=== PATIENT | female | born 1935 | race Asian ===

== ENCOUNTER 2020-11-22 14:59 | Observation (INO) ==
--- NOTE | 2020-11-22 16:36 | Emergency Department Note ---
History of Present Illness General Chief complaint: Cardiac Assessment Stated complaint: HEART PROBLEM Time Seen by Provider: 11/22/20 16:21 Source: patient and family History of Present Illness Provider complaint: Weakness in the legs Onset (ago): week(s) Location: lower extremity, left and right Pain Consistency: + constant Quality: + other (Weakness in legs) Relieved By: + none Associated symptoms: + headaches, + shortness of breath and + weakness; no chest pain, no cough, no fever/chills and no nausea/vomiting This is an 85-year-old female who presents from her doctor's office for evaluation of leg weakness as well as dyspnea on exertion. Apparently she had a abnormal EKG over at the doctor's office and she was sent here for cardiac work- up as well as rule out CVA. The patient and her states that the patient developed difficulty walking approximately 3 weeks ago. She suffered no injury or fall. She states that both her legs feel weak. She does have occasional back pain but none currently. She does complain of pain in both of her knees which makes it difficult for her to walk. She denies any numbness or weakness in her upper extremities other than a generalized weakness that she has been having. She has occasional headaches but nothing that concerns her. She also states that she has had some intermittent shortness of breath over the past 3 months. She has no associated chest discomfort or pain with this. She states that she notices it when she is exerting herself only. She states she has lost 15 pounds over the past 3 months according to her doctor. She states that she has not really been eating very much because she states food does not taste very good. She denies any abdominal pain, vomiting or diarrhea. She has had no urin kaylee complaints other than chronic urinary frequency. She has had no fever or cough or cold symptoms. Home Medications Medication Instructions Recorded Confirmed Type ascorbic acid (vitamin C) [Vitamin 500 mg PO DAILY PRN 06/10/19 11/22/20 History C] cholecalciferol (vitamin D3) 2,000 unit PO DAILY PRN 06/10/19 11/22/20 History [Vitamin D3] omega 3-wkx-chb-fish oil [Fish Oil] 1 cap PO DAILY PRN 06/10/19 11/22/20 History Allergies Allergy/AdvReac Type Severity Reaction Status Date / Time No Known Allergies Allergy Verified 11/22/20 13:30 Past Med/Surg History Medical History (Updated 11/22/20 @ 22:15 by Shaan Yang MD) Age-related cognitive decline Communication impairment due to language barrier (refused white kid buffer for phone interview). will use if needed day of surgery. Depression patient was to start Remeron on 05/11/19 by PCP -- reports patient did not cook pickled meat prescription Hyperlipidemia Raynaud's disease Solitary pulmonary nodule (~2018) Surgical History History of cataract surgery right Family History Father , 73 No problems noted. Mother , 80 No problems noted. Other No pertinent family history Denies family history of Ovarian cancer Prostate cancer Breast cancer Lung cancer Colorectal cancer Social History Smoking Status: Never smoker Second Hand Exposure: No; Hx Alcohol Use: No Hx Substance Use: No Preferred Language: Nepalese Communication Ability: Impaired Visual Impairment: Limited Hearing Ability: Normal Clerk To Justice Required: Yes Beliefs That Will Affect Care: None marital status: Current Living Situation: Spouse current occupational status: retired Feels Safe at Home: Yes Childhood Exposure to Second-Hand Smoke: No caffeine: No Dental Care, Regularly: No Physical Activity Frequency: Does not Exercise Seatbelt Use: always Sunscreen Use: No Assistive Devices: Glasses Review of Systems See HPI for pertinent positives & negatives. and A total of 10 systems reviewed and were otherwise negative Physical Exam Vital Signs Vital Signs - 24 hr 11/22/20 15:05 11/22/20 16:29 11/22/20 16:30 Temperature 36.7 C Temperature Source Temporal Artery Scan Pulse Rate 114 H Pulse Rate [Apical] Respiratory Rate 18 Respiratory Effort / Characteristics Non-Labored Spontaneous Respiratory Depth Normal Respiratory Pattern Regular Blood Pressure 150/68 H Blood Pressure [Left Arm] Blood Pressure Mean 95 Blood Pressure Mean [Left Arm] Blood Pressure Position Sitting Pulse Oximetry 96 Oxygen Delivery Method Room Air Room Air Room Air Sepsis Recent Fever Within 48 Hours No Sepsis New/Unexplained Change in Mental Status N/A Sepsis Action Taken by Nursing No Action Required 11/22/20 16:50 11/22/20 16:59 11/22/20 18:31 Temperature Temperature Source Pulse Rate Pulse Rate [Apical] 85 105 H Respiratory Rate 18 18 Respiratory Effort / Characteristics Respiratory Depth Respiratory Pattern Blood Pressure Blood Pressure [Left Arm] 145/74 H 144/84 H Blood Pressure Mean Blood Pressure Mean [Left Arm] 97 104 Blood Pressure Position Pulse Oximetry 97 97 Oxygen Delivery Method Room Air Room Air Room Air Sepsis Recent Fever Within 48 Hours Sepsis New/Unexplained Change in Mental Status Sepsis Action Taken by Nursing 11/22/20 20:00 Temperature Temperature Source Pulse Rate 89 Pulse Rate [Apical] Respiratory Rate 22 Respiratory Effort / Characteristics Respiratory Depth Respiratory Pattern Blood Pressure 179/87 H Blood Pressure [Left Arm] Blood Pressure Mean 117 Blood Pressure Mean [Left Arm] Blood Pressure Position Pulse Oximetry 98 Oxygen Delivery Method Room Air Sepsis Recent Fever Within 48 Hours Sepsis New/Unexplained Change in Mental Status Sepsis Action Taken by Nursing Constitutional: Vital signs reviewed. Cachectic elderly female. Eyes: Pupils are equal round reactive to light. Conjunctiva are noninjected. ENT: Pharynx is clear without erythema or exudate. Mucous membranes are moist. Neck supple without meningeal signs. Respiratory: Clear to auscultation bilaterally. Breath sounds are equal bilaterally. Cardiovascular: Regular rate and rhythm. No rubs or gallops. GI: Soft, nondistended and nontender. Bowel sounds are present. Musculoskeletal: No peripheral edema. No lower extremity tenderness. Integumentary: No cyanosis. or jaundice. Neurologic: The patient is awake and alert. Cranial nerves II-XII are intact. Motor is 5 out of 5 all extremities. Somewhat difficult assessing leg strength due to significant pain in her knees. She is, however, able to lift both legs f or 5 seconds over the bed. Sensation is intact to light touch all extremities. Normal speech. No pronator drift. No limb ataxia. Psychiatric: Normal affect. Not anxious appearing. Course Administered Medications Discontinued Medications Ioversol (Optiray 350 500ml) 120 ml IV ONCE ONE Stop: 11/22/20 17:52 Last Admin: 11/22/20 17:51 Dose: 120 ml Documented by: [id number] Medical Decision Making Differential Diagnosis CAD, pneumonia, UTI, anemia, metabolic derangement, intracranial mass, CVA Medical Records Attestation: I reviewed the patient's medical records. I did perform a limited focused review of portions of the patient's old chart on the electronic medical record. The patient was seen by her doctor today who sent her over for evaluation of CVA and cardiac disease based on her lower leg weakness as well as an abnormal EKG. Home Medications Current Medication List: was personally reviewed by me Laboratory Data Attestation: I reviewed the patient's lab results. Result diagrams: 11/22/20 16:20 11/22/20 16:20 Lab Results 11/22/20 11/22/20 11/22/20 Range/Units 16:20 16:20 16:20 WBC 8.88 (4.8-10.8) K/uL RBC 3.64 L (4.2-5.4) M/uL Hgb 10.9 L (12.0-16.0) g/dL Hct 34.3 L (37-47) % MCV 94.2 (80-100) fL MCH 29.9 (25-34) pg MCHC 31.8 L (32-36) g/dL RDW Std Deviation 45.0 (36.4-46.3) fL RDW Coeff of Celia 13.1 (11.5-14.5) % Plt Count 400 (130-400) K/uL MPV 8.8 (7.4-10.4) fL Immature Gran % (Auto) 0.0 % Neut % (Auto) 76.3 % Lymph % (Auto) 14.8 % Garza % (Auto) 8.7 % Eos % (Auto) 0.1 % Baso % (Auto) 0.1 % Neut # (Auto) 6.78 H (1.4-6.5) K/uL Lymph # (Auto) 1.31 (1.2-3.4) K/uL Garza # (Auto) 0.77 H (0.11-0.59) K/uL Eos # (Auto) 0.01 (0-0.5) K/uL Baso # (Auto) 0.01 (0-0.2) K/uL Immature Gran # (Auto) 0.00 (0.00-0.02) K/uL ESR (0-30) mm/hr PT 10.6 (9.0-12.0) Seconds INR 1.0 (0.9-1.1) APTT 28.9 (21.0-31.0) Seconds PTT Ratio 1.1 Sodium 136 (136-145) mmol/L Potassium 3.9 (3.5-5.1) mmol/L Chloride 104 (98-107) mmol/L Carbon Dioxide 27 (21-32) mmol/L Anion Gap 6.0 (3-11) BUN 11 (7-18) mg/dl Creatinine 0.51 L (0.6-1.2) mg/dl Est Cr Clr Drug Dosing Not Reportable Est GFR ( Amer) 101.6 ml/min Est GFR (Non-Af Amer) 87.7 ml/min BUN/Creatinine Ratio 21.5 H (10-20) Glucose 102 H (70-99) mg/dl Uric Acid (2.6-7.2) mg/dl Calcium 9.2 (8.5-10.1) mg/dl Magnesium 2.1 (1.8-2.4) mg/dl Total Bilirubin 0.3 (0.2-1) mg/dl AST 14 L (15-37) U/L ALT 12 (12-78) U/L Alkaline Phosphatase 64 (45-117) U/L Troponin I 0.099 H* (0-0.045) ng/ml C-Reactive Protein (0-0.29) mg/dl Total Protein 7.7 (6.4-8.2) gm/dl Albumin 2.7 L (3.4-5.0) gm/dl Globulin 5.0 H (2.5-4.0) gm/dl Albumin/Globulin Ratio 0.5 L (0.9-2) Prealbumin (20-40) mg/dl Urine Color Urine Appearance (Clear) Urine pH (4.5-7.5) Ur Specific [place] (1.000-1.030) Urine Protein (Negative) Urine Glucose (UA) (Negative) Urine Ketones (Negative) Urine Blood (Negative) Urine Nitrite (Negative) Urine Bilirubin (Negative) Urine Urobilinogen (Negative) Ur Leukocyte Esterase (Negative) Urine WBC (Auto) (0-5) /hpf Urine RBC (Auto) (0-4) /hpf U Hyaline Cast (Auto) (0-5) /lpf U Epithel Cells (Auto) (0-5) /lpf Urine Bacteria (Auto) (Negative) COVID-19 Eval Order SARS-CoV-2 (PCR) (Negative) 05/19/21 05/19/21 05/19/21 Range/Units 16:20 16:20 17:20 WBC (4.8-10.8) K/uL RBC (4.2-5.4) M/uL Hgb (12.0-16.0) g/dL Hct (37-47) % MCV (80-100) fL MCH (25-34) pg MCHC (32-36) g/dL RDW Std Deviation (36.4-46.3) fL RDW Coeff of Celia (11.5-14.5) % Plt Count (130-400) K/uL MPV (7.4-10.4) fL Immature Gran % (Auto) % Neut % (Auto) % Lymph % (Auto) % Garza % (Auto) % Eos % (Auto) % Baso % (Auto) % Neut # (Auto) (1.4-6.5) K/uL Lymph # (Auto) (1.2-3.4) K/uL Garza # (Auto) (0.11-0.59) K/uL Eos # (Auto) (0-0.5) K/uL Baso # (Auto) (0-0.2) K/uL Immature Gran # (Auto) (0.00-0.02) K/uL ESR 73 H (0-30) mm/hr PT (9.0-12.0) Seconds INR (0.9-1.1) APTT (21.0-31.0) Seconds PTT Ratio Sodium (136-145) mmol/L Potassium (3.5-5.1) mmol/L Chloride (98-107) mmol/L Carbon Dioxide (21-32) mmol/L Anion Gap (3-11) BUN (7-18) mg/dl Creatinine (0.6-1.2) mg/dl Est Cr Clr Drug Dosing Est GFR ( Amer) ml/min Est GFR (Non-Af Amer) ml/min BUN/Creatinine Ratio (10-20) Glucose (70-99) mg/dl Uric Acid 3.1 (2.6-7.2) mg/dl Calcium (8.5-10.1) mg/dl Magnesium (1.8-2.4) mg/dl Total Bilirubin (0.2-1) mg/dl AST (15-37) U/L ALT (12-78) U/L Alkaline Phosphatase (45-117) U/L Troponin I (0-0.045) ng/ml C-Reactive Protein 2.54 H (0-0.29) mg/dl Total Protein (6.4-8.2) gm/dl Albumin (3.4-5.0) gm/dl Globulin (2.5-4.0) gm/dl Albumin/Globulin Ratio (0.9-2) Prealbumin 12.3 L (20-40) mg/dl Urine Color Yellow Urine Appearance Clear (Clear) Urine pH 6.5 (4.5-7.5) Ur Specific [place] 1.013 (1.000-1.030) Urine Protein Trace H (Negative) Urine Glucose (UA) Negative (Negative) Urine Ketones Negative (Negative) Urine Blood 3+ H (Negative) Urine Nitrite Negative (Negative) Urine Bilirubin Negative (Negative) Urine Urobilinogen Negative (Negative) Ur Leukocyte Esterase Negative (Negative) Urine WBC (Auto) 1-5 (0-5) /hpf Urine RBC (Auto) 10-30 H (0-4) /hpf U Hyaline Cast (Auto) 1-5 (0-5) /lpf U Epithel Cells (Auto) 10-20 H (0-5) /lpf Urine Bacteria (Auto) Negative (Negative) COVID-19 Eval Order SARS-CoV-2 (PCR) (Negative) 11/22/20 11/22/20 Range/Units 18:00 18:00 WBC (4.8-10.8) K/uL RBC (4.2-5.4) M/uL Hgb (12.0-16.0) g/dL Hct (37-47) % MCV (80-100) fL MCH (25-34) pg MCHC (32-36) g/dL RDW Std Deviation (36.4-46.3) fL RDW Coeff of Celia (11.5-14.5) % Plt Count (130-400) K/uL MPV (7.4-10.4) fL Immature Gran % (Auto) % Neut % (Auto) % Lymph % (Auto) % Garza % (Auto) % Eos % (Auto) % Baso % (Auto) % Neut # (Auto) (1.4-6.5) K/uL Lymph # (Auto) (1.2-3.4) K/uL Garza # (Auto) (0.11-0.59) K/uL Eos # (Auto) (0-0.5) K/uL Baso # (Auto) (0-0.2) K/uL Immature Gran # (Auto) (0.00-0.02) K/uL ESR (0-30) mm/hr PT (9.0-12.0) Seconds INR (0.9-1.1) APTT (21.0-31.0) Seconds PTT Ratio Sodium (136-145) mmol/L Potassium (3.5-5.1) mmol/L Chloride (98-107) mmol/L Carbon Dioxide (21-32) mmol/L Anion Gap (3-11) BUN (7-18) mg/dl Creatinine (0.6-1.2) mg/dl Est Cr Clr Drug Dosing Est GFR ( Amer) ml/min Est GFR (Non-Af Amer) ml/min BUN/Creatinine Ratio (10-20) Glucose (70-99) mg/dl Uric Acid (2.6-7.2) mg/dl Calcium (8.5-10.1) mg/dl Magnesium (1.8-2.4) mg/dl Total Bilirubin (0.2-1) mg/dl AST (15-37) U/L ALT (12-78) U/L Alkaline Phosphatase (45-117) U/L Troponin I (0-0.045) ng/ml C-Reactive Protein (0-0.29) mg/dl Total Protein (6.4-8.2) gm/dl Albumin (3.4-5.0) gm/dl Globulin (2.5-4.0) gm/dl Albumin/Globulin Ratio (0.9-2) Prealbumin (20-40) mg/dl Urine Color Urine Appearance (Clear) Urine pH (4.5-7.5) Ur Specific [place] (1.000-1.030) Urine Protein (Negative) Urine Glucose (UA) (Negative) Urine Ketones (Negative) Urine Blood (Negative) Urine Nitrite (Negative) Urine Bilirubin (Negative) Urine Urobilinogen (Negative) Ur Leukocyte Esterase (Negative) Urine WBC (Auto) (0-5) /hpf Urine RBC (Auto) (0-4) /hpf U Hyaline Cast (Auto) (0-5) /lpf U Epithel Cells (Auto) (0-5) /lpf Urine Bacteria (Auto) (Negative) COVID-19 Eval Order Covid19 at [facility] SARS-CoV-2 (PCR) NEGATIVE (Negative) Imaging Data Radiologist's Impression: Chest X-Ray 11/22/20 16:04 SINGLE VIEW CHEST CLINICAL HISTORY: Atypical chest pain. FINDINGS: An AP, portable, upright chest radiograph is compared to study dated 04/23/2018 and correlated with chest CT dated 04/29/2018. The examination is degraded by portable technique and patient rotation. The cardiomediastinal silhouette is unremarkable noting atherosclerotic calcification of the thoracic aorta. The mitral annulus is densely calcified. A pleural calcification is again seen in the left midlung. Chronic interstitial thickening is similar to previous. There is mild bibasilar scarring/atelectasis. No airspace consolidation or large pleural effusion is identified. No pneumothorax is seen. The skeletal structures are osteopenic. The bony thorax is grossly intact. IMPRESSION: No acute cardiopulmonary abnormality. ACT 112: Negative or not required by law. Electronically signed by: Aquiles Pillai M.D. 11/22/2020 4:[address] 11/22/20 16:34 CT OF THE HEAD WITHOUT CONTRAST CLINICAL HISTORY: Weakness. Evaluate for cerebrovascular accident. COMPARISON STUDY: Head CT April 23, 2018. TECHNIQUE: Helical axial images of the head were obtained without IV contrast. Automated exposure control was utilized for the study. A dose lowering technique was utilized adhering to the principles of ALARA. FINDINGS: No acute intracranial hemorrhage, midline shift or mass effect is present. The ventricular system is stable. Moderate atrophy is noted. White matter hypodensity suggests small vessel disease. The basal cisterns are patent. No extra-axial collections are present. There are no findings to suggest acute dural sinus thrombosis or acute territorial infarct. No significant calvarial a bnormalities are present. Visualized portions of the sinuses and mastoid air cells are clear. IMPRESSION: No acute intracranial findings. No change in appearance of the brai n. ACT 112: Negative or not required by law. Electronically signed by: Jason Lee M.D. 11/22/2020 5:[address] 11/22/20 16:36 CT OF THE LUMBAR SPINE CLINICAL HISTORY: Back pain. Fall. Evaluate for fracture. COMPARISON STUDY: CT of the abdomen and pelvis April 29, 2018. TECHNIQUE: Helical axial images of the lumbar spine were obtained. Sagittal and coronal reconstructions were viewed. Automated exposure control was utiliz ed for the study. A dose lowering technique was utilized adhering to the principles of ALARA. FINDINGS: For purposes of numbering on this exam, the L5-S1 disc space is assig butch to axial image 257 of 342. There is mild rightward curvature of the upper lumbar spine. Mild loss of height of the superior endplate of L1 is unchanged and CT of April 29, 2018. There is no acute lumbar spine fracture. Moderate multilevel degenerative disc disease and facet arthrosis is noted. The central canal and neural foramen are suboptimally assessed by CT. Sacroiliac joints are intact. No paravertebral abnormality is identified by CT. A few water attenuation left renal lesions were shown to reflect cysts on prior contrast enhanced CT. IMPRESSION: 1. No acute lumbar spine fracture or subluxation. 2. Moderate multilevel degenerative disc disease and facet arthrosis within the lumbar spine. ACT 112: Negative or not required by law. Electronically signed by: Jason Lee M.D. 11/22/2020 5:41 PM Chest CTA 11/22/20 17:17 CT ANGIOGRAPHY OF THE CHEST, PULMONARY EMBOLUS PROTOCOL CLINICAL HISTORY: Dyspnea on exertion. Evaluate for pulmonary embolus. COMPARISON STUDY: Chest CT April 29, 2018. Chest radiograph performed earlier today. TECHNIQUE: Following IV administration of 120 mL of Optiray, helical axial images of the chest were obtained utilizing the pulmonary embolus protocol. Maximal intensity projections and sagittal and coronal reformats were viewed on an independent 3D workstation. IV contrast was administered without complication. Automated exposure control was utilized for the study. A dose lowering technique was utilized adhering to the principles of ALARA. CT DOSE: 221.72 mGy.cm FINDINGS: No pulmonary emboli are identified although the lower lobe pulmonary arteries are suboptimally assessed due to respiratory motion. There is no thoracic aortic dissection. No pericardial effusion is noted. Mild cardiomegaly is noted. There is no pneumothorax or pleural effusion. Lungs are suboptimally assessed due to respiratory motion. There are mild bilateral lower lobe ground glass opacities. Numerous tiny pulmonary nodules are unchanged since prior exam. There are several calcified nodules which are also benign. IMPRESSION: 1. No pulmonary emboli identified although lower lobe pulmonary arteries suboptimally assessed due to respiratory motion. 2. Mild bilateral lower lobe groundglass opacities. Atelectasis is favored however an infectious process could appear similar. ACT 112: Negative or not required by law. Electronically signed by: Jason Lee M.D. 11/22/2020 6:32 PM ECG Data Attestation: I personally reviewed and interpreted this ECG as follows: Indication: + SOB/dyspnea Rate (beats per minute): 103 Rhythm: + sinus tachycardia ECG [place]: + Normal ECG ST segments: + Nonspecific ST abnormalities ECG Findings: no PVCs Comparison ECG Date: from (April 23, 2018) Change: no significant change MDM Narrative I did evaluate the patient as noted above. The patient had a routine visit with her doctor today. He found that she has had recent weight loss, although this may be explained due to her lack of appetite. She also has been complaining of weakness in her legs for the past week with difficulty walking and dyspnea on exertion for the past 3 months. She did have an abnormal EKG with nonspecific ST findings in the office. She does state that she gets short of breath mostly on exertion. Her also states that he has noticed her have some labored breathing at times. IV access was established. I did place an order for con tinuous cardiac monitoring. The monitor showed normal sinus rhythm at a rate of 98 bpm. I did order and personally review the patient's 12-lead EKG as described above. She has sinus tachycardia with nonspecific ST changes. I did order and personally reviewed the images of the patient's chest x-ray as described above. Her chest x-ray does not demonstrate any acute process. I did order a urine analysis. She does not have a UTI. I did order and review the patient's blood work as noted in the electronic medical record. Her hemoglobin is 10.9. Her white count is not elevated. Platelets are 400. Electrolytes are unremarkable. Troponin is elevated at 0.099. I did order a CT of the head, lumbar spine and CT angiogram of the chest. I did review the images myself as well as the radiology report as described above. There is no evidence of stroke or acute intracranial process. No acute fracture of the lumbar spine. CT angiogram of the chest does not show any evidence of pulmonary embolism. I did discuss the test results with the patient. I did recommend hospitalization for further care and evaluation. Covid testing is negative. I did discuss the case with the hospitalist and telephonic nurse case manager. Impression & Plan BARRAZA (dyspnea on exertion), Abnormal ECG, Elevated troponin I level, Bilateral leg weakness, Anemia, Unexplained weight loss Discharge Plan Visit Data Chief Complaint: Cardiac Assessment Stated Complaint: HEART PROBLEM ED Provider: Shaan Yang Discharge Problem: BARRAZA (dyspnea on exertion), Abnormal ECG, Elevated troponin I level, Bilateral leg weakness, Anemia, Unexplained weight loss Patient Disposition: Admitted As Inpatient Discharge Instructions Interventions: ED Discharge Assessment Last Done: 11/22/20 20:52
[2020-11-22 16:42] LABS: Basophils # (auto) 0.01 K/uL (0-0.2); Basophils % (auto) 0.1 %; Eosinophils # (auto) 0.01 K/uL (0-0.5); Eosinophils % (auto) 0.1 %; Hematocrit (blood only) 34.3 % (37-47); Hemoglobin 10.9 g/dL (12.0-16.0); Lymphocytes # (auto) 1.31 K/uL (1.2-3.4); Lymphocytes % (auto) 14.8 %; Mean Corpuscular Hemoglobin 29.9 pg (25-34); Mean Corpuscular Hgb Conc 31.8 g/dL (32-36); Mean Corpuscular Volume 94.2 fL (80-100); Mean Platelet Volume 8.8 fL (7.4-10.4); Monocytes # (auto) 0.77 K/uL (0.11-0.59); Monocytes % (auto) 8.7 %; Neutrophils # (auto) 6.78 K/uL (1.4-6.5); Neutrophils % (auto) 76.3 %; Platelet Count 400 K/uL (130-400); RDW Coefficient of Variation 13.1 % (11.5-14.5); Red Blood Count 3.64 M/uL (4.2-5.4); White Blood Count 8.88 K/uL (4.8-10.8)
--- NOTE | 2020-11-22 16:49 | XRay Report ---
SINGLE VIEW CHEST CLINICAL HISTORY: Atypical chest pain. FINDINGS: An AP, portable, upright chest radiograph is compared to study dated 04/23/2018 and correla jonh with chest CT dated 04/29/2018. The examination is degraded by portable technique and patient rot ation. The cardiomediastinal silhouette is unremarkable noting atherosclerotic calcification of the thoracic aorta. The mitral annulus is densely calcified. A pleural calcification is again seen in the left midlung. Chronic interstitial thickening is similar to previous. There is mild bibasilar scarri ng/atelectasis. No airspace consolidation or large pleural effusion is identified. No pneumothorax is seen. The skeletal structures are osteopenic. The bony thorax is grossly intact. IMPRESSION: No acute cardiopulmonary abnormality. ACT 112: Negative or not required by law. Electronically signed by: Aquiles Pillai M.D. 11/22/2020 4:47 PM
[2020-11-22 16:50] LABS: Partial Thromboplastin Ratio 1.1; Partial Thromboplastin Time 28.9 Seconds (21.0-31.0); Prothrombin Time 10.6 Seconds (9.0-12.0)
[2020-11-22 16:58] LABS: Alanine Aminotransferase 12 U/L (12-78); Albumin Level 2.7 gm/dl (3.4-5.0); Aspartate Aminotransferase 14 U/L (15-37); BUN Creatinine Ratio 21.5 (10-20); Blood Urea Nitrogen 11 mg/dl (7-18); Calcium 9.2 mg/dl (8.5-10.1); Carbon Dioxide 27 mmol/L (21-32); Chloride 104 mmol/L (98-107); Est GFR (African American) 101.6 ml/min; Est GFR (Non-African American) 87.7 ml/min; Glucose 102 mg/dl (70-99); Magnesium 2.1 mg/dl (1.8-2.4); Potassium 3.9 mmol/L (3.5-5.1); Sodium 136 mmol/L (136-145)
[2020-11-22 17:16] LABS: Albumin Globulin Ratio 0.5 (0.9-2); Alkaline Phosphatase 64 U/L (45-117); Bilirubin,Total 0.3 mg/dl (0.2-1); Total Protein 7.7 gm/dl (6.4-8.2); Troponin I 0.099 ng/ml (0-0.045)
--- NOTE | 2020-11-22 17:31 | CT Scan Report ---
CT OF THE HEAD WITHOUT CONTRAST CLINICAL HISTORY: Weakness. Evaluate for cerebrovascular accident. COMPARISON STUDY: Head CT April 23, 2018. TECHNIQUE: Helical axial images of the head were obtained without IV contrast. Automated exposure con trol was utilized for the study. A dose lowering technique was utilized adhering to the principles o f ALARA. FINDINGS: No acute intracranial hemorrhage, midline shift or mass effect is present. The ventricular system is stable. Moderate atrophy is noted. White matter hypodensity suggests small vessel disease. The basal cisterns are patent. No extra-axial collections are present. There are no findings to sugge st acute dural sinus thrombosis or acute territorial infarct. No significant calvarial abnormalities are present. Visualized portions of the sinuses and mastoid air cells are clear. IMPRESSION: No acute intracranial findings. No change in appearance of the brain. ACT 112: Negative or not required by law. Electronically signed by: Jason Lee M.D. 11/22/2020 5:29 PM
[2020-11-22 17:43] LABS: Appearance Urine Clear (Clear); Bacteria Urine Automated Negative (Negative); Bilirubin Urine Negative (Negative); Blood Urine 3+ (Negative); Color Urine Yellow; Glucose Urine UA Negative (Negative); Ketones Urine Negative (Negative); Leukocyte Esterase Urine Negative (Negative); Nitrite Urine Negative (Negative); Protein Urine Trace (Negative); Specific Gravity Urine 1.013 (1.000-1.030); Urobilinogen Urine Negative (Negative); pH Urine 6.5 (4.5-7.5)
--- NOTE | 2020-11-22 17:43 | CT Scan Report ---
CT OF THE LUMBAR SPINE CLINICAL HISTORY: Back pain. Fall. Evaluate for fracture. COMPARISON STUDY: CT of the abdomen and pelvis April 29, 2018. TECHNIQUE: Helical axial images of the lumbar spine were obtained. Sagittal and coronal reconstruct ions were viewed. Automated exposure control was utilized for the study. A dose lowering technique was utilized adhering to the principles of ALARA. FINDINGS: For purposes of numbering on this exam, the L5-S1 disc space is assigned to axial image 257 of 342. There is mild rightward curvature of the upper lumbar spine. Mild loss of height of the supe rior endplate of L1 is unchanged and CT of April 29, 2018. There is no acute lumbar spine fracture. Moderate multilevel degenerative disc disease and facet arthrosis is noted. The central canal and ne ural foramen are suboptimally assessed by CT. Sacroiliac joints are intact. No paravertebral abnormal ity is identified by CT. A few water attenuation left renal lesions were shown to reflect cysts on pr ior contrast enhanced CT. IMPRESSION: 1. No acute lumbar spine fracture or subluxation. 2. Moderate multilevel degenerative disc disease and facet arthrosis within the lumbar spine. ACT 112: Negative or not required by law. Electronically signed by: Jason Lee M.D. 11/22/2020 5:41 PM
[2020-11-22] MEDS ORDERED: OPTIRAY 350 500ml IV ONE (17:51)
--- NOTE | 2020-11-22 18:33 | CT Scan Report ---
CT ANGIOGRAPHY OF THE CHEST, PULMONARY EMBOLUS PROTOCOL CLINICAL HISTORY: Dyspnea on exertion. Evaluate for pulmonary embolus. COMPARISON STUDY: Chest CT April 29, 2018. Chest radiograph performed earlier today. TECHNIQUE: Following IV administration of 120 mL of Optiray, helical axial images of the chest were o btained utilizing the pulmonary embolus protocol. Maximal intensity projections and sagittal and cor onal reformats were viewed on an independent 3D workstation. IV contrast was administered without co mplication. Automated exposure control was utilized for the study. A dose lowering technique was ut ilized adhering to the principles of ALARA. CT DOSE: 221.72 mGy.cm FINDINGS: No pulmonary emboli are identified although the lower lobe pulmonary arteries are suboptim ally assessed due to respiratory motion. There is no thoracic aortic dissection. No pericardial effus ion is noted. Mild cardiomegaly is noted. There is no pneumothorax or pleural effusion. Lungs are sub optimally assessed due to respiratory motion. There are mild bilateral lower lobe ground glass opacit ies. Numerous tiny pulmonary nodules are unchanged since prior exam. There are several calcified nod ules which are also benign. IMPRESSION: 1. No pulmonary emboli identified although lower lobe pulmonary arteries suboptimally assessed due to respiratory motion. 2. Mild bilateral lower lobe groundglass opacities. Atelectasis is favored however an infectious proc ess could appear similar. ACT 112: Negative or not required by law. Electronically signed by: Jason Lee M.D. 11/22/2020 6:32 PM
--- NOTE | 2020-11-22 20:03 | History & Physical Report ---
Date of Service November 22, 2020 Assessment & Plan (1) Generalized weakness: 85yo female presenting with 2-3 months of functional decline, difficulty with ambulation as well as significant unintentional weight loss of 15# over the last 3 months. Etiology unclear at this time. Suspect some element of depression. Patient appears to be slightly dry on exam. Electrolytes are within normal limits -Management of underlying medical issues as below -PT/OT evaluation Present on Admission?: Yes (2) Knee pain, bilateral: Patient with swollen and tender knees - difficulty with weight bearing and ambulation. She denies trauma. No additional joint pain. Patient does report some shoulder girdle weakness as well as difficulty rising from the commode - ?Polymyalgia rheumatica vs developing rheumatological issues. -Check uric acid -Check ESR and CRP -X-ray bilateral knees Present on Admission?: Yes (3) Abnormal EKG: Patient sent from PCP for concerning EKG findings. She has elevated troponin at 0.099. She denies chest pain, palpitations. She has had a dry cough and BARRAZA -Telemetry monitoring -Trend troponins -Echo in AM -ASA 81mg po daily Present on Admission?: Yes (4) Abnormal weight loss: Patient with significant weight loss, unintentional, 15# in the last 3 months. She has had decline in appetite and poor oral intake. -Check Prealbumin -Dietary consultation -Patient was prescribed Remeron in the past for depressive symptoms, however, she did not fill the prescription and did not want to take this medication. \ Present on Admission?: Yes (5) Dysuria: Negative UA -Follow culture F/E/N - LR at 80mL/hr x 1 liter, electrolytes WNL, Regular diet as tolerated Ppx - Heparin Code - Full Dispo - Admit to medical with telemetry Present on Admission?: Yes History of Present Illness Chief Complaint: weight loss, EKG changes Primary Care Provider: Jacky Moraes DO Michelle Lynch is an 85yo [place] female presenting at request of her PCP, Dr. Moraes, for weight loss and EKG changes. Patient was seen by her PCP today for routine visit. She was complaining of generalized decrease in energy and difficulty with ambulation. Additionally she was noted to have a 15# weight loss over the last 3 months. Patient's sister suddenly 2 months ago. Patient's diet has markedly declined over the last 3 weeks - she is barely eating. Patient has been unable to walk or stand for the last 3 weeks - she reports severe pain and swelling in her knees bilaterally. She reports occasional dizziness with positional changes. Additionally, she states that sometimes she experiences weakness in her shoulder girdle as well as difficulty standing up from commode. notes a decrease in appetite over the last 2+ months. Today she ate one egg, one orange, 1/2 apple and 1/2 of a banana. She has received both Covid-19 vaccines with the second vaccine being in September. Patient denies fevers/chills/chest pain/SOB/abdominal pain/nausea/vomit ing/diarrhea or constipation. She denies pain or swelling in other joints/rashes/oral lesions. Denies edema/orthopnea/swelling She has had a dry cough as well as increased urinary frequency ER Course: No interventions Allergies Allergy/AdvReac Type Severity Reaction Status Date / Time No Known Allergies Allergy Verified 11/22/20 13:30 Home Medications Medication Instructions Recorded Confirmed Type ascorbic acid (vitamin C) [Vitamin 500 mg PO DAILY PRN 06/10/19 11/22/20 History C] cholecalciferol (vitamin D3) 2,000 unit PO DAILY PRN 06/10/19 11/22/20 History [Vitamin D3] omega 7-ptw-hai-fish oil [Fish Oil] 1 cap PO DAILY PRN 06/10/19 11/22/20 History Past Med/Surg History Medical History (Updated 11/22/20 @ 20:49 by Arielle Del Valle DO) Age-related cognitive decline Communication impairment due to language barrier (refused freelance interpreter/translator for phone interview). will use if needed day of surgery. Depression patient was to start Remeron on 05/11/19 by PCP -- reports patient did not sweet pickle maker prescription Hyperlipidemia Raynaud's disease Solitary pulmonary nodule (~2018) Surgical History History of cataract surgery right Family History Father , 73 No problems noted. Mother , 80 No problems noted. Other No pertinent family history Denies family history of Ovarian cancer Prostate cancer Breast cancer Lung cancer Colorectal cancer Social History (Reviewed 11/22/20 @ 20:33 by DREW Colon Smoking Status: Never smoker Second Hand Exposure: No; Hx Alcohol Use: No Hx Substance Use: No Preferred Language: [place] Communication Ability: Impaired Visual Impairment: Limited Hearing Ability: Normal Dip Filler Required: Yes Beliefs That Will Affect Care: None marital status: Current Living Situation: Spouse current occupational status: retired Feels Safe at Home: Yes Childhood Exposure to Second-Hand Smoke: No caffeine: No Dental Care, Regularly: No Physical Activity Frequency: Does not Exercise Seatbelt Use: always Sunscreen Use: No Assistive Devices: Glasses Review of Systems Review of Systems: All systems reviewed & are unremarkable except as noted in HPI & below Physical Exam Physical Exam: General: frail, cachectic female patient resting comfortably, NAD, non-toxic in appearance, AA&O x 4 Skin: warm, dry, intact, no rashes or lesions HEENT: NC/AT, PERRL, EOMI, anicteric sclera, conjunctiva without injection, external ear normal to inspection and nontender, nares patent, dry mucus membranes, dentition intact, no oropharyngeal lesions, neck supple, trachea midl ine, no LAD, no thyromegaly, no JVD Heart: +S1/S2, regular, no m/r/g Lungs: equal air entry bilaterally, no rales/rhonchi/wheezes Abd: +BS, soft, NT/ND, no masses/organomegaly/ascites Ext: warm, 2+ pulses in UE/LE bilaterally, no clubbing/cyanosis or edema, bilateral knees swollen and tender Neuro: nonfocal, patient AA&O x 4, speech intact, no facial droop, moving all extremities on command with equal strength 5/5 Results & Data Results & Data ([facility]) Vital Signs (Past 12 Hours) Vital Signs Temp Pulse Pulse Resp BP BP Pulse Ox 11/22/20 18:31 105 H 18 144/84 H 97 11/22/20 16:59 85 18 145/74 H 97 11/22/20 15:05 36.7 C 114 H 18 150/68 H 96 Laboratory Results Laboratory Results WBC 8.88 K/uL (4.8-10.8) 11/22/20 16:20 RBC 3.64 M/uL (4.2-5.4) L 11/22/20 16:20 Hgb 10.9 g/dL (12.0-16.0) L 11/22/20 16:20 Hct 34.3 % (37-47) L 11/22/20 16:20 MCV 94.2 fL (80-100) 11/22/20 16:20 MCH 29.9 pg (25-34) 11/22/20 16:20 MCHC 31.8 g/dL (32-36) L 11/22/20 16:20 RDW Std Deviation 45.0 fL (36.4-46.3) 11/22/20 16:20 RDW Coeff of Celia 13.1 % (11.5-14.5) 11/22/20 16:20 Plt Count 400 K/uL (130-400) 11/22/20 16:20 MPV 8.8 fL (7.4-10.4) 11/22/20 16:20 Immature Gran % (Auto) 0.0 % 11/22/20 16:20 Neut % (Auto) 76.3 % 11/22/20 16:20 Lymph % (Auto) 14.8 % 11/22/20 16:20 [place] % (Auto) 8.7 % 11/22/20 16:20 Eos % (Auto) 0.1 % 11/22/20 16:20 Baso % (Auto) 0.1 % 11/22/20 16:20 Neut # (Auto) 6.78 K/uL (1.4-6.5) H 11/22/20 16:20 Lymph # (Auto) 1.31 K/uL (1.2-3.4) 11/22/20 16:20 [place] # (Auto) 0.77 K/uL (0.11-0.59) H 11/22/20 16:20 Eos # (Auto) 0.01 K/uL (0-0.5) 11/22/20 16:20 Baso # (Auto) 0.01 K/uL (0-0.2) 11/22/20 16:20 Immature Gran # (Auto) 0.00 K/uL (0.00-0.02) 11/22/20 16:20 PT 10.6 Seconds (9.0-12.0) 11/22/20 16:20 INR 1.0 (0.9-1.1) 11/22/20 16:20 APTT 28.9 Seconds (21.0-31.0) 11/22/20 16:20 PTT Ratio 1.1 11/22/20 16:20 Sodium 136 mmol/L (136-145) 11/22/20 16:20 Potassium 3.9 mmol/L (3.5-5.1) 11/22/20 16:20 Chloride 104 mmol/L (98-107) 11/22/20 16:20 Carbon Dioxide 27 mmol/L (21-32) 11/22/20 16:20 Anion Gap 6.0 (3-11) 11/22/20 16:20 BUN 11 mg/dl (7-18) 11/22/20 16:20 Creatinine 0.51 mg/dl (0.6-1.2) L 11/22/20 16:20 Est Cr Clr Drug Dosing Not Reportable 11/22/20 16:20 Est GFR ( Amer) 101.6 ml/min 11/22/20 16:20 Est GFR (Non-Af Amer) 87.7 ml/min 11/22/20 16:20 BUN/Creatinine Ratio 21.5 (10-20) H 11/22/20 16:20 Glucose 102 mg/dl (70-99) H 11/22/20 16:20 Calcium 9.2 mg/dl (8.5-10.1) 11/22/20 16:20 Magnesium 2.1 mg/dl (1.8-2.4) 11/22/20 16:20 Total Bilirubin 0.3 mg/dl (0.2-1) 11/22/20 16:20 AST 14 U/L (15-37) L 11/22/20 16:20 ALT 12 U/L (12-78) 11/22/20 16:20 Alkaline Phosphatase 64 U/L (45-117) 11/22/20 16:20 Troponin I 0.099 ng/ml (0-0.045) H* 11/22/20 16:20 Total Protein 7.7 gm/dl (6.4-8.2) 11/22/20 16:20 Albumin 2.7 gm/dl (3.4-5.0) L 11/22/20 16:20 Globulin 5.0 gm/dl (2.5-4.0) H 11/22/20 16:20 Albumin/Globulin Ratio 0.5 (0.9-2) L 11/22/20 16:20 Urine Color Yellow 11/22/20 17:20 Urine Appearance Clear (Clear) 11/22/20 17:20 Urine pH 6.5 (4.5-7.5) 11/22/20 17:20 Ur Specific [place] 1.013 (1.000-1.030) 11/22/20 17:20 Urine Protein Trace (Negative) H 11/22/20 17:20 Urine Glucose (UA) Negative (Negative) 11/22/20 17:20 Urine Ketones Negative (Negative) 11/22/20 17:20 Urine Blood 3+ (Negative) H 11/22/20 17:20 Urine Nitrite Negative (Negative) 11/22/20 17:20 Urine Bilirubin Negative (Negative) 11/22/20 17:20 Urine Urobilinogen Negative (Negative) 11/22/20 17:20 Ur Leukocyte Esterase Negative (Negative) 11/22/20 17:20 Urine WBC (Auto) 1-5 /hpf (0-5) 11/22/20 17:20 Urine RBC (Auto) 10-30 /hpf (0-4) H 11/22/20 17:20 U Hyaline Cast (Auto) 1-5 /lpf (0-5) 11/22/20 17:20 U Epithel Cells (Auto) 10-20 /lpf (0-5) H 11/22/20 17:20 Urine Bacteria (Auto) Negative (Negative) 11/22/20 17:20 COVID-19 Eval Order Covid19 at [facility] 11/22/20 18:00 SARS-CoV-2 (PCR) NEGATIVE (Negative) 11/22/20 18:00 Impressions Chest X-Ray 11/22/20 16:04 SINGLE VIEW CHEST CLINICAL HISTORY: Atypical chest pain. FINDINGS: An AP, portable, upright chest radiograph is compared to study dated 04/23/2018 and correlated with chest CT dated 04/29/2018. The examination is degraded by portable technique and patient rotation. The cardiomediastinal silhouette is unremarkable noting atherosclerotic calcification of the thoracic aorta. The mitral annulus is densely calcified. A pleural calcification is again seen in the left midlung. Chronic interstitial thickening is similar to previous. There is mild bibasilar scarring/atelectasis. No airspace consolidation or large pleural effusion is identified. No pneumothorax is seen. The skeletal structures are osteopenic. The bony thorax is grossly intact. IMPRESSION: No acute cardiopulmonary abnormality. ACT 112: Negative or not required by law. Electronically signed by: Aquiles Pillai M.D. 11/22/2020 4:[address] 11/22/20 16:34 CT OF THE HEAD WITHOUT CONTRAST CLINICAL HISTORY: Weakness. Evaluate for cerebrovascular accident. COMPARISON STUDY: Head CT April 23, 2018. TECHNIQUE: Helical axial images of the head were obtained without IV contrast. Automated exposure control was utilized for the study. A dose lowering technique was utilized adhering to the principles of ALARA. FINDINGS: No acute intracranial hemorrhage, midline shift or mass effect is present. The ventricular system is stable. Moderate atrophy is noted. White matter hypodensity suggests small vessel disease. The basal cisterns are patent. No extra-axial collections are present. There are no findings to suggest acute dural sinus thrombosis or acute territorial infarct. No significant calvarial abnormalities are present. Visualized portions of the sinuses and mastoid air cells are clear. IMPRESSION: No acute intracranial findings. No change in appearance of the brain. ACT 112: Negative or not required by law. Electronically signed by: Jason Lee M.D. 11/22/2020 5:[address] 11/22/20 16:36 CT OF THE LUMBAR SPINE CLINICAL HISTORY: Back pain. Fall. Evaluate for fracture. COMPARISON STUDY: CT of the abdomen and pelvis April 29, 2018. TECHNIQUE: Helical axial images of the lumbar spine were obtained. Sagittal and coronal reconstructions were viewed. Automated exposure control was utilized for the study. A dose lowering technique was utilized adhering to the principles of ALARA. FINDINGS: For purposes of numbering on this exam, the L5-S1 disc space is assigned to axial image 257 of 342. There is mild rightward curvature of the upper lumbar spine. Mild loss of height of the superior endplate of L1 is unchanged and CT of April 29, 2018. There is no acute lumbar spine fracture. Moderate multilevel degenerative disc disease and facet arthrosis is noted. The central canal and neural foramen are suboptimally assessed by CT. Sacroiliac joints are intact. No paravertebral abnormality is identified by CT. A few water attenuation left renal lesions were shown to reflect cysts on prior contrast enhanced CT. IMPRESSION: 1. No acute lumbar spine fracture or subluxation. 2. Moderate multilevel degenerative disc disease and facet arthrosis within the lumbar spine. ACT 112: Negative or not required by law. Electronically signed by: Jason Lee M.D. 11/22/2020 5:41 PM Chest CTA 11/22/20 17:17 CT ANGIOGRAPHY OF THE CHEST, PULMONARY EMBOLUS PROTOCOL CLINICAL HISTORY: Dyspnea on exertion. Evaluate for pulmonary embolus. COMPARISON STUDY: Chest CT April 29, 2018. Chest radiograph performed earlier today. TECHNIQUE: Following IV administration of 120 mL of Optiray, helical axial images of the chest were obtained utilizing the pulmonary embolus protocol. Maximal intensity projections and sagittal and coronal reformats were viewed on an independent 3D workstation. IV contrast was administered without complication. Automated exposure control was utilized for the study. A dose lowering technique was utilized adhering to the principles of ALARA. CT DOSE: 221.72 mGy.cm FINDINGS: No pulmonary emboli are identified although the lower lobe pulmonary arteries are suboptimally assessed due to respiratory motion. There is no thoracic aortic dissection. No pericardial effusion is noted. Mild cardiomegaly is noted. There is no pneumothorax or pleural effusion. Lungs are suboptimally assessed due to respiratory motion. There are mild bilateral lower lobe ground glass opacities. Numerous tiny pulmonary nodules are unchanged since prior exam. There are several calcified nodules which are also benign. IMPRESSION: 1. No pulmonary emboli identified although lower lobe pulmonary arteries suboptimally assessed due to respiratory motion. 2. Mild bilateral lower lobe groundglass opacities. Atelectasis is favored however an infectious process could appear similar. ACT 112: Negative or not required by law. Electronically signed by: Jason Lee M.D. 11/22/2020 6:32 PM PG Care Time/CCT Total # of Minutes Spent Total Time Spent with Patient: Total time spent is greater than 50% in coordination of care (as documented) at patient's floor/unit and/or counseling patient: Coding Level of Care Code 95425 Initial Inpt Care Lvl 3 Diagnoses Generalized weakness R53.1 Knee pain, bilateral M25.561; M25.562 Chronicity: unspecified Abnormal EKG R94.31 Abnormal weight loss R63.4 Dysuria R30.0 (1) Knee pain, bilateral Chronicity: unspecified Qualified Code(s): M25.561 - Pain in right knee; M25.562 - Pain in left knee
[2020-11-22] MEDS ORDERED: ACETAMINOPHEN 325 MG TAB PO PRN (21:33)
[2020-11-22] MEDS ORDERED: LACTATED RINGER'S 1,000 ML IV SCH (21:33)
[2020-11-22] MEDS ORDERED: ONDANSETRON INJ 2 MG/ML 2 ML VIAL IV PRN (21:33)
[2020-11-22 21:52] LABS: C Reactive Protein 2.54 mg/dl (0-0.29); Prealbumin 12.3 mg/dl (20-40); Uric Acid 3.1 mg/dl (2.6-7.2)
[2020-11-22] MEDS: HEPARIN SOD 5,000 UNIT/0.5 ML VIAL SQ SCH (23:08)
--- NOTE | 2020-11-23 07:33 | XRay Report ---
XR knee RT 3V CLINICAL HISTORY: pain swelling COMPARISON: None. DISCUSSION: No acute fracture dislocation is seen. Osseous structures are diffusely demineralized which limits evaluation. Severe narrowing of the lateral compartment of the knee joint and patellofemoral joint with subchondr al sclerosis is seen representing degenerative process. Linear calcifications are seen within knee joint space. Soft tissue edema is seen. Partially visualized linear density seen within soft tissues posteriorly to the right fibula which co uld represent foreign body. Severe vascular calcifications are seen P IMPRESSION: No acute fracture or dislocation. Possible foreign body within soft tissues. Degenerative process. Osteopenia. Atherosclerosis. ACT 112: Negative or not required by law. The above report was generated using voice recognition software. It may contain grammatical, syntax o r spelling errors. Electronically signed by: Rossy Hou DO 11/23/2020 7:32 AM
--- NOTE | 2020-11-23 07:36 | XRay Report ---
XR knee LT 3V CLINICAL HISTORY: pain, swelling COMPARISON: None. DISCUSSION: No acute fracture or dislocation seen. Osseous structures are diffusely demineralized whi ch limits evaluation. Severe narrowing of lateral compartment of the knee joint as well as patellofem oral joint are seen with subchondral sclerosis and possible cysts. Linear calcifications are seen projecting to the lateral compartment of the left knee joint space. Vascular calcification and diffuse soft tissue edema are seen. IMPRESSION: 1. No acute fracture or dislocation. Limited exam due to osteopenia. 2. Degenerative changes as detailed above. 3. Atherosclerosis. ACT 112: Negative or not required by law. The above report was generated using voice recognition software. It may contain grammatical, syntax o r spelling errors. Electronically signed by: Rossy Hou DO 11/23/2020 7:35 AM
[2020-11-23] MEDS ORDERED: THIAMINE HCL 100 MG TAB PO SCH (09:00)
[2020-11-23] MEDS: ASPIRIN 81 MG ECTAB PO SCH (09:38)
[2020-11-23] MEDS: HEPARIN SOD 5,000 UNIT/0.5 ML VIAL SQ SCH ×2 (09:38→20:36)
--- NOTE | 2020-11-23 09:56 | Electrocardiogram Report ---
Test Reason : Blood Pressure : / mmHG Vent. Rate : 103 BPM Atrial Rate : 103 BPM P-R Int : 144 ms QRS Dur : 088 ms QT Int : 346 ms P-R-T Axes : 049 001 072 degrees QTc Int : 453 ms Poor data quality, interpretation may be adversely affected Sinus tachycardia Nonspecific T wave abnormality Abnormal ECG When compared with ECG of 23-APR-2018 15:01, Aberrant conduction is no longer Present Non-specific change in ST segment in Anterior leads QT has shortened Confirmed by Jesus Carlton ([id number]) on 11/23/2020 9:56:17 AM Referred By: REFERRED SELF Confirmed By:Jacques Carlton
--- NOTE | 2020-11-23 10:17 | Medical Student Progress Note ---
Date of Service November 23, 2020 Assessment & Plan (1) Anemia: Pt's has a history of blood in her urine on prior UA, but pt notes not seeing a doctor regularly. On admission she had a UA +3 positive for blood and pt mentioned a having had dark stools although she couldn't remember when. Given the pt's history, there was a concern for possible malignancy. A CT of the abdomen and pelvis was ordered. Given pt's poor oral intake at home, B12 and folate were ordered which came back normal. Iron was low and TIBC was low which suggest a chronic process or possible malnutrition. -Dietary Consult Anemia type: unspecified type Qualified Code(s): D64.9 - Anemia, unspecified (2) Generalized weakness: Etiology unclear at this time. Could be due to underlying anemia and severe osteoarthritis. Patient appears to be slightly dry on exam. Electrolytes are within normal limits -PT/OT evaluation -Fall precautions (3) Knee pain, bilateral: Patient with swollen and tender knees . She has difficulty with weight bearing and ambulation. She denies trauma. No additional joint pain. Patient difficulty rising from the commode. ESR and CRP are elevated and uric acid is normal. Bilaterally Knee Xrays show bilateral severe narrowing of lateral compartment of the knee joint as well as the patellofemoral joint representing degenerative changes. Due to GI concerns, topical voltaran might offer some relief of Pain. PT/OT were consulted to evaluate function - Topical Voltaran PRN for pain. Chronicity: unspecified Qualified Code(s): M25.561 - Pain in right knee; M25.562 - Pain in left knee (4) Abnormal ECG: Patient sent from PCP for concerning EKG findings. She has elevated troponin at 0.099 and repeat at .118. She denies chest pain, palpitations. She mentioned some BARRAZA. Recent echo showed moderate mitral annular calcification but otherwise unremarkable. -Telemetry monitoring -Trend troponins -ASA 81mg po daily (5) Unexplained weight loss: Patient with significant weight loss, unintentional, 15# in the last 3 months. She has had decline in appetite and poor oral intake. A trial of Marinol may help with pt's appetite. -Patient was prescribed Remeron in the past for depressive symptoms, however, she did not fill the prescription and did not want to take this medication. -Check Prealbumin -Dietary consultation -Marinol 2.5mg (6) Dysuria: Pt has had increased urinary frequency and occasional dysuria. Negative UA -Follow culture Admission and Anticipated Discharge Date Admission Date: November 22, 2020 Supervising Attestation Patient seen and examined with MS2 Carlos Velazquez and PGY-2 Dr. Roland. Agree with history, exam findings, assessment and plan of care as outlined with the following updates: In brief, Ms Lynch is an 85 year old female admitted with generalized weakness, 15 lb weight loss, and abnormal EKG. She reports that her knees are very painful with movement. Reports her appetite is diminished. When she eats, she has to run to the bathroom and has loose stool. Thin, frail appearing. Heart with regular rate and rhythm. Lungs are clear to auscultation. Abdomen soft, non-tender. 1. generalized weakness. in the setting of 15lb weight loss, loose stool. PT/OT. CT Abdomen/Pelvis without lymphadenopathy or obvious mass. There is a moderate amount of stool in the colon and rectum. ESR and CRP is elevated. Concern for malignancy vs PMR. Lower suspicion for IBD given age. 2. protein calorie malnutrition. Prealbumin 12.3. Secondary to decreased appetite. Started marinol. 3. Bilateral knee pain. Likely contributing to weakness and difficulty ambulating. Radiographs with significant degenerative disease. Trial of topical voltaren. 4. Anemia. Iron deficiency. Iron level is 34. Awaiting ferritin; however, given elevated ESR and CRP, may have a falsely elevated ferritin as an inflammatory marker. B12 and folate are normal. 5. elevated troponin with abnormal EKG. Echo with normal EF, moderate mitral annular calcification. Troponin has started to flatten. Repeat troponin in the AM. Dispo: pending clinical improvement. Subjective *Interpreting services were attempted, but failed to find a language pt understands. Pt notes she speaks [place] guinean, but dialect could not be determined. (Attempted Turkmen and Bulgarian)* Pt is an 85 yo F that was brought into the ER by her for weight loss, fatigue, and recent ECG changes. In terms of of her weight loss, pt was unaware of her recent weight loss, but has noted that she has not really had an appetite, but also that she has had bouts of diarrhea. When asked about dark stools, she mentions having seen dark stools in the past with a strong odor. She tends to avoid anything by mouth as it can upset her stomach. Pt has noted significant weakness and fatigue, but could not give me a time period in which she first noticed the change. She mentioned waking up still feeling sleepy and not feeling rested. She sleeps a lot during the day and gets tired walking short distances. When she stands up, she has to pause as she sometimes feels some dizzyness. Her biggest concern is her knee pain. She does not take medication for it, but is something that causes significant impairment. Spoke with today, she has been having memory problems for years so has trouble recalling a lot. He notes increased fatigue, BARRAZA, and urinary frequency at home. He notes that she does not tend to see the doctors, but has no significant medical hx, surgical hx, or family hx. Her appatite has not been great at home, but the weight loss was first noted while at a doctors appt. Review of Systems Review of Systems: All systems reviewed & are unremarkable except as noted in Subjective Physical Exam Constitutional: + frail appearing and + underweight Eyes: PERRL, conjunctivae normal, anicteric sclerae arcus senilis noted ENMT: external ear and nose normal, oropharynx normal Neck: normal visual inspection Respiratory: normal respiratory effort, lungs clear to auscultation Cardiovascular: RRR, no murmur, no edema Gastrointestinal (Abdomen): Inspection/Auscultation: abdomen normal to inspection; abdomen not distended Percussion/Palpation: abdomen nontender Liver easily palpated due to low BMI Musculoskeletal: Knee: + knee abnormal to inspection, + knee ROM with crepitation (L>R) and + joint line tenderness; no skin erythema Skin: no rashes and no jaundice Neurologic: PERRL, EOMI, accommodation nl, no face palsy, no dysarthria Psychiatric: Orientation: alert, oriented to person, oriented to place and cooperative; + not oriented to time Eye Contact: good eye contact Results & Data ([facility]) Vital Signs (Past 12 Hours) Vital Signs Temp Pulse Pulse Resp BP BP Pulse Ox 11/23/20 08:15 36.9 C 86 18 146/72 H 97 11/23/20 04:00 36.6 C 74 18 132/74 99 11/23/20 01:52 83 11/22/20 23:05 37.0 C 79 18 138/68 98 Laboratory Results CBC shows low Hgb (10.9) and low Hct (34.3) with normal MCV. Low MCHC CMP- unremarkable Troponin x2- .099 (1x) and .114 (2x) CRP is high (2.54) UA showed blood +3 Laboratory Results WBC 8.88 K/uL (4.8-10.8) 11/22/20 16:20 RBC 3.64 M/uL (4.2-5.4) L 11/22/20 16:20 Hgb 10.9 g/dL (12.0-16.0) L 11/22/20 16:20 Hct 34.3 % (37-47) L 11/22/20 16:20 MCV 94.2 fL (80-100) 11/22/20 16:20 MCH 29.9 pg (25-34) 11/22/20 16:20 MCHC 31.8 g/dL (32-36) L 11/22/20 16:20 RDW Std Deviation 45.0 fL (36.4-46.3) 11/22/20 16:20 RDW Coeff of Celia 13.1 % (11.5-14.5) 11/22/20 16:20 Plt Count 400 K/uL (130-400) 11/22/20 16:20 MPV 8.8 fL (7.4-10.4) 11/22/20 16:20 Immature Gran % (Auto) 0.0 % 11/22/20 16:20 Neut % (Auto) 76.3 % 11/22/20 16:20 Lymph % (Auto) 14.8 % 11/22/20 16:20 Navarro % (Auto) 8.7 % 11/22/20 16:20 Eos % (Auto) 0.1 % 11/22/20 16:20 Baso % (Auto) 0.1 % 11/22/20 16:20 Reticulocyte % (Auto) 1.0 % (0.5-2.0) 11/23/20 09:54 Neut # (Auto) 6.78 K/uL (1.4-6.5) H 11/22/20 16:20 Lymph # (Auto) 1.31 K/uL (1.2-3.4) 11/22/20 16:20 Navarro # (Auto) 0.77 K/uL (0.11-0.59) H 11/22/20 16:20 Eos # (Auto) 0.01 K/uL (0-0.5) 11/22/20 16:20 Baso # (Auto) 0.01 K/uL (0-0.2) 11/22/20 16:20 Reticulocyte # 0.04 10^6/uL (0.02-0.10) 11/23/20 09:54 Immature Gran # (Auto) 0.00 K/uL (0.00-0.02) 11/22/20 16:20 ESR 73 mm/hr (0-30) H 11/22/20 16:20 PT 10.6 Seconds (9.0-12.0) 11/22/20 16:20 INR 1.0 (0.9-1.1) 11/22/20 16:20 APTT 28.9 Seconds (21.0-31.0) 11/22/20 16:20 PTT Ratio 1.1 11/22/20 16:20 Sodium 136 mmol/L (136-145) 11/22/20 16:20 Potassium 3.9 mmol/L (3.5-5.1) 11/22/20 16:20 Chloride 104 mmol/L (98-107) 11/22/20 16:20 Carbon Dioxide 27 mmol/L (21-32) 11/22/20 16:20 Anion Gap 6.0 (3-11) 11/22/20 16:20 BUN 11 mg/dl (7-18) 11/22/20 16:20 Creatinine 0.51 mg/dl (0.6-1.2) L 11/22/20 16:20 Est Cr Clr Drug Dosing Not Reportable 11/22/20 16:20 Est GFR ( Amer) 101.6 ml/min 11/22/20 16:20 Est GFR (Non-Af Amer) 87.7 ml/min 11/22/20 16:20 BUN/Creatinine Ratio 21.5 (10-20) H 11/22/20 16:20 Glucose 102 mg/dl (70-99) H 11/22/20 16:20 Uric Acid 3.1 mg/dl (2.6-7.2) 11/22/20 16:20 Calcium 9.2 mg/dl (8.5-10.1) 11/22/20 16:20 Magnesium 2.1 mg/dl (1.8-2.4) 11/22/20 16:20 Iron 34 mcg/dl (35-150) L 11/23/20 09:54 TIBC 167 mcg/dl (250-450) L 11/23/20 09:54 Total Bilirubin 0.3 mg/dl (0.2-1) 11/22/20 16:20 AST 14 U/L (15-37) L 11/22/20 16:20 ALT 12 U/L (12-78) 11/22/20 16:20 Alkaline Phosphatase 64 U/L (45-117) 11/22/20 16:20 Troponin I 0.118 ng/ml (0-0.045) H* 11/23/20 09:54 C-Reactive Protein 2.54 mg/dl (0-0.29) H 11/22/20 16:20 Total Protein 7.7 gm/dl (6.4-8.2) 11/22/20 16:20 Albumin 2.7 gm/dl (3.4-5.0) L 11/22/20 16:20 Globulin 5.0 gm/dl (2.5-4.0) H 11/22/20 16:20 Albumin/Globulin Ratio 0.5 (0.9-2) L 11/22/20 16:20 Prealbumin 12.3 mg/dl (20-40) L 11/22/20 16:20 Vitamin B12 419 pg/ml (193-986) 11/23/20 09:54 Folate > 20.00 ng/ml (>5.38) 11/23/20 09:54 Urine Color Yellow 11/22/20 17:20 Urine Appearance Clear (Clear) 11/22/20 17:20 Urine pH 6.5 (4.5-7.5) 11/22/20 17:20 Ur Specific Polo 1.013 (1.000-1.030) 11/22/20 17:20 Urine Protein Trace (Negative) H 11/22/20 17:20 Urine Glucose (UA) Negative (Negative) 11/22/20 17:20 Urine Ketones Negative (Negative) 11/22/20 17:20 Urine Blood 3+ (Negative) H 11/22/20 17:20 Urine Nitrite Negative (Negative) 11/22/20 17:20 Urine Bilirubin Negative (Negative) 11/22/20 17:20 Urine Urobilinogen Negative (Negative) 11/22/20 17:20 Ur Leukocyte Esterase Negative (Negative) 11/22/20 17:20 Urine WBC (Auto) 1-5 /hpf (0-5) 11/22/20 17:20 Urine RBC (Auto) 10-30 /hpf (0-4) H 11/22/20 17:20 U Hyaline Cast (Auto) 1-5 /lpf (0-5) 11/22/20 17:20 U Epithel Cells (Auto) 10-20 /lpf (0-5) H 11/22/20 17:20 Urine Bacteria (Auto) Negative (Negative) 11/22/20 17:20 COVID-19 Eval Order Covid19 at [facility] 11/22/20 18:00 SARS-CoV-2 (PCR) NEGATIVE (Negative) 11/22/20 18:00 Impressions Chest X-Ray 11/22/20 16:04 SINGLE VIEW CHEST CLINICAL HISTORY: Atypical chest pain. FINDINGS: An AP, portable, upright chest radiograph is compared to study dated 04/23/2018 and correlated with chest CT dated 04/29/2018. The examination is degraded by portable technique and patient rotation. The cardiomediastinal silhouette is unremarkable noting atherosclerotic calcification of the thoracic aorta. The mitral annulus is densely calcified. A pleural calcification is again seen in the left midlung. Chronic interstitial thickening is similar to previous. There is mild bibasilar scarring/atelectasis. No airspace consolidation or large pleural effusion is identified. No pneumothorax is seen. The skeletal structures are osteopenic. The bony thorax is grossly intact. IMPRESSION: No acute cardiopulmonary abnormality. ACT 112: Negative or not required by law. Electronically signed by: Aquiles Pillai M.D. 11/22/2020 4:[address] 11/22/20 16:34 CT OF THE HEAD WITHOUT CONTRAST CLINICAL HISTORY: Weakness. Evaluate for cerebrovascular accident. COMPARISON STUDY: Head CT April 23, 2018. TECHNIQUE: Helical axial images of the head were obtained without IV contrast. Automated exposure control was utilized for the study. A dose lowering technique was utilized adhering to the principles of ALARA. FINDINGS: No acute intracranial hemorrhage, midline shift or mass effect is present. The ventricular system is stable. Moderate atrophy is noted. White matter hypodensity suggests small vessel disease. The basal cisterns are patent. No extra-axial collections are present. There are no findings to suggest acute dural sinus thrombosis or acute territorial infarct. No significant calvarial abnormalities are present. Visualized portions of the sinuses and mastoid air cells are clear. IMPRESSION: No acute intracranial findings. No change in appearance of the brain. ACT 112: Negative or not required by law. Electronically signed by: Jason Lee M.D. 11/22/2020 5:[address] 11/22/20 16:36 CT OF THE LUMBAR SPINE CLINICAL HISTORY: Back pain. Fall. Evaluate for fracture. COMPARISON STUDY: CT of the abdomen and pelvis April 29, 2018. TECHNIQUE: Helical axial images of the lumbar spine were obtained. Sagittal and coronal reconstructions were viewed. Automated exposure control was utilized for the study. A dose lowering technique was utilized adhering to the principles of ALARA. FINDINGS: For purposes of numbering on this exam, the L5-S1 disc space is assigned to axial image 257 of 342. There is mild rightward curvature of the upper lumbar spine. Mild loss of height of the superior endplate of L1 is unchanged and CT of April 29, 2018. There is no acute lumbar spine fracture. Moderate multilevel degenerative disc disease and facet arthrosis is noted. The central canal and neural foramen are suboptimally assessed by CT. Sacroiliac joints are intact. No paravertebral abnormality is identified by CT. A few water attenuation left renal lesions were shown to reflect cysts on prior contrast enhanced CT. IMPRESSION: 1. No acute lumbar spine fracture or subluxation. 2. Moderate multilevel degenerative disc disease and facet arthrosis within the lumbar spine. ACT 112: Negative or not required by law. Electronically signed by: Jason Lee M.D. 11/22/2020 5:41 PM Chest CTA 11/22/20 17:17 CT ANGIOGRAPHY OF THE CHEST, PULMONARY EMBOLUS PROTOCOL CLINICAL HISTORY: Dyspnea on exertion. Evaluate for pulmonary embolus. COMPARISON STUDY: Chest CT April 29, 2018. Chest radiograph performed earlier today. TECHNIQUE: Following IV administration of 120 mL of Optiray, helical axial images of the chest were obtained utilizing the pulmonary embolus protocol. Maximal intensity projections and sagittal and coronal reformats were viewed on an independent 3D workstation. IV contrast was administered without complication. Automated exposure control was utilized for the study. A dose lowering technique was utilized adhering to the principles of ALARA. CT DOSE: 221.72 mGy.cm FINDINGS: No pulmonary emboli are identified although the lower lobe pulmonary arteries are suboptimally assessed due to respiratory motion. There is no thoracic aortic dissection. No pericardial effusion is noted. Mild cardiomegaly is noted. There is no pneumothorax or pleural effusion. Lungs are suboptimally assessed due to respiratory motion. There are mild bilateral lower lobe ground glass opacities. Numerous tiny pulmonary nodules are unchanged since prior exam. There are several calcified nodules which are also benign. IMPRESSION: 1. No pulmonary emboli identified although lower lobe pulmonary arteries suboptimally assessed due to respiratory motion. 2. Mild bilateral lower lobe groundglass opacities. Atelectasis is favored however an infectious process could appear similar. ACT 112: Negative or not required by law. Electronically signed by: Jason Lee M.D. 11/22/2020 6:32 PM Knee X-Ray 11/22/20 21:33 XR knee LT 3V CLINICAL HISTORY: pain, swelling COMPARISON: None. DISCUSSION: No acute fracture or dislocation seen. Osseous structures are diffusely demineralized which limits evaluation. Severe narrowing of lateral co mpartment of the knee joint as well as patellofemoral joint are seen with subchondral sclerosis and possible cysts. Linear calcifications are seen projecting to the lateral compartment of the left knee joint space. Vascular calcification and diffuse soft tissue edema are seen. IMPRESSION: 1. No acute fracture or dislocation. Limited exam due to osteopenia. 2. Degenerative changes as detailed above. 3. Atherosclerosis. ACT 112: Negative or not required by law. The above report was generated using voice recognition software. It may contain grammatical, syntax or spelling errors. Electronically signed by: Rossy Hou DO 11/23/2020 7:35 AM Abdomen/Pelvis CT 11/23/20 09:38 CT OF THE ABDOMEN AND PELVIS WITH CONTRAST CLINICAL HISTORY: 15lb unintentional weight loss COMPARISON STUDY: CT of the abdomen and pelvis April 29, 2018. TECHNIQUE: Following IV administration of 87 mL of Optiray, axial images of the abdomen and pelvis were obtained from the lung bases to the proximal femurs. Images were reviewed in the axial, sagittal, and coronal planes. IV contrast was administered without complication. Automated exposure control was utilized for the study. A dose lowering technique was utilized adhering to the principles of ALARA. CT DOSE: 253.32 mGy.cm FINDINGS: This exam is compromised by motion artifact and paucity of intra- abdominal fat. The liver, spleen, right adrenal gland and pancreas are unremarkable. Nodularity of the left adrenal gland is unchanged since CT of April 29, 2018. This is benign given stability. There is no peripancreatic or pericholecystic infiltration. There is no biliary or pancreatic ductal dilatation. Two left renal lesions are suboptimally assessed on this exam given mildly motion artifact but favor cysts. There is no hydronephrosis. There is moderate plaque of the abdominal aorta. No abdominal or retroperitoneal lymphadenopathy is noted. There is contrast within the bladder from recent contrast-enhanced chest CT. 3.2 cm calcified fibroid is present. There is no evidence for a bowel obstruction. The caliber of small and large bowel are normal. No bowel wall thickening is identified on this study. There is no ascites. No acute fracture or suspicious lesion is identified within the visualized skeletal structures. Moderate amount stool within the colon and rectum is noted. IMPRESSION: 1. No acute process within the abdomen or pelvis. 2. No evidence for malignancy within the abdomen or pelvis although exam compromised given motion artifact and paucity of intra-abdominal fat. 3. No bowel obstruction. Moderate amount stool within the colon and rectum. ACT 112: Negative or not required by law. Electronically signed by: Jason Lee M.D. 11/23/2020 10:47 AM
[2020-11-23] MEDS ORDERED: OPTIRAY 300 100mL IV ONE (10:19)
[2020-11-23 10:21] LABS: Reticulocytes # 0.04 10^6/uL (0.02-0.10)
--- NOTE | 2020-11-23 10:48 | CT Scan Report ---
CT OF THE ABDOMEN AND PELVIS WITH CONTRAST CLINICAL HISTORY: 15lb unintentional weight loss COMPARISON STUDY: CT of the abdomen and pelvis April 29, 2018. TECHNIQUE: Following IV administration of 87 mL of Optiray, axial images of the abdomen and pelvis we re obtained from the lung bases to the proximal femurs. Images were reviewed in the axial, sagittal, and coronal planes. IV contrast was administered without complication. Automated exposure control wa s utilized for the study. A dose lowering technique was utilized adhering to the principles of ALARA . CT DOSE: 253.32 mGy.cm FINDINGS: This exam is compromised by motion artifact and paucity of intra-abdominal fat. The liver, spleen, right adrenal gland and pancreas are unremarkable. Nodularity of the left adrenal gland is un changed since CT of April 29, 2018. This is benign given stability. There is no peripancreatic or p ericholecystic infiltration. There is no biliary or pancreatic ductal dilatation. Two left renal lesi ons are suboptimally assessed on this exam given mildly motion artifact but favor cysts. There is no hydronephrosis. There is moderate plaque of the abdominal aorta. No abdominal or retroperitoneal lymp hadenopathy is noted. There is contrast within the bladder from recent contrast-enhanced chest CT. 3. 2 cm calcified fibroid is present. There is no evidence for a bowel obstruction. The caliber of small and large bowel are normal. No bowel wall thickening is identified on this study. There is no ascite s. No acute fracture or suspicious lesion is identified within the visualized skeletal structures. Mo derate amount stool within the colon and rectum is noted. IMPRESSION: 1. No acute process within the abdomen or pelvis. 2. No evidence for malignancy within the abdomen or pelvis although exam compromised given motion art ifact and paucity of intra-abdominal fat. 3. No bowel obstruction. Moderate amount stool within the colon and rectum. ACT 112: Negative or not required by law. Electronically signed by: Jason Lee M.D. 11/23/2020 10:47 AM
[2020-11-23 10:52] LABS: Troponin I 0.118 ng/ml (0-0.045)
[2020-11-23] MEDS: THIAMINE HCL 200 MG in SODIUM CHLORIDE 0.9% 50 ML IV SCH (11:05)
[2020-11-23 11:14] LABS: Folate (Folic Acid) > 20.00 ng/ml (>5.38); Vitamin B12 419 pg/ml (193-986)
--- NOTE | 2020-11-23 12:32 | XCELERA ---
[id number]
[2020-11-23] MEDS: DICLOFENAC SOD 1% GEL 100 GM TUBE EXT SCH (18:40)
[2020-11-24] MEDS: DICLOFENAC SOD 1% GEL 100 GM TUBE EXT SCH ×3 (00:59→11:13)
[2020-11-24 05:53] LABS: Basophils # (auto) 0.01 K/uL (0-0.2); Basophils % (auto) 0.1 %; Eosinophils # (auto) 0.05 K/uL (0-0.5); Eosinophils % (auto) 0.5 %; Immature Granulocytes # (auto) 0.02 K/uL (0.00-0.02); Immature Granulocytes % (auto) 0.2 %; Lymphocytes # (auto) 1.18 K/uL (1.2-3.4); Lymphocytes % (auto) 12.9 %; Mean Corpuscular Hemoglobin 29.6 pg (25-34); Mean Corpuscular Hgb Conc 32.4 g/dL (32-36); Mean Corpuscular Volume 91.6 fL (80-100); Mean Platelet Volume 8.7 fL (7.4-10.4); Monocytes # (auto) 0.59 K/uL (0.11-0.59); Monocytes % (auto) 6.5 %; Neutrophils # (auto) 7.28 K/uL (1.4-6.5); Neutrophils % (auto) 79.8 %; Platelet Count 358 K/uL (130-400); RDW Standard Deviation 43.9 fL (36.4-46.3); Red Blood Count 3.71 M/uL (4.2-5.4); White Blood Count 9.13 K/uL (4.8-10.8)
[2020-11-24 06:19] LABS: RBC Morphology Unremarkable
[2020-11-24 06:22] LABS: Albumin Level 2.5 gm/dl (3.4-5.0); BUN Creatinine Ratio 29.1 (10-20); Creatinine Clr Calc Pharmacy 39.5 ml/min; Est GFR (Non-African American) 84.5 ml/min; Potassium 3.5 mmol/L (3.5-5.1)
[2020-11-24 06:36] LABS: Albumin Globulin Ratio 0.5 (0.9-2); Bilirubin,Total 0.2 mg/dl (0.2-1); Ferritin 289.5 ng/ml (8-388); Globulin 4.7 gm/dl (2.5-4.0); Phosphorus 2.6 mg/dl (2.5-4.9); Thyroid Stimulating Hormone 1.95 uIu/ml (0.300-4.500); Total Protein 7.2 gm/dl (6.4-8.2); Troponin I 0.125 ng/ml (0-0.045)
[2020-11-24] MEDS: ASPIRIN 81 MG ECTAB PO SCH (07:42)
[2020-11-24] MEDS: THIAMINE HCL 200 MG in SODIUM CHLORIDE 0.9% 50 ML IV SCH (07:43)
[2020-11-24] MEDS: HEPARIN SOD 5,000 UNIT/0.5 ML VIAL SQ SCH (07:45)
[2020-11-24 08:06] LABS: Hepatitis B Surface Ab Quant 720.54 mIU/mL (>or=10mIU/mL Immune); Hepatitis B Surface Antibody Immune
[2020-11-24 08:17] LABS: Hepatitis B Surf Ag Rflx Conf Neg (Neg)
[2020-11-24 08:45] LABS: Hepatitis C IgG 13Yrs+Old_Rflx Neg (Neg)
[2020-11-24] MEDS ORDERED: FAMOTIDINE 20 MG TAB PO SCH (09:00)
[2020-11-24] MEDS ORDERED: POLYETHYLENE (MIRALAX) 17 GM PACK PO SCH (09:00)
--- NOTE | 2020-11-24 10:19 | Medical Student Progress Note ---
Date of Service November 24, 2020 Assessment & Plan (1) Anemia: Pt's has a history of blood in her urine on prior UA, but pt notes not seeing a doctor regularly. On admission she had a UA +3 positive for blood and pt mentioned a having had dark stools although she couldn't remember when. Given the pt's history, there was a concern for possible malignancy. A CT of the abdomen and pelvis was ordered. Given pt's poor oral intake at home, B12 and folate were ordered which came back normal. Iron was low and TIBC was low which suggest a chronic process or possible malnutrition. -Dietary Consult Anemia type: unspecified type Qualified Code(s): D64.9 - Anemia, unspecified (2) Generalized weakness: Etiology unclear at this time. Could be due to underlying anemia and severe osteoarthritis. Patient appears to be slightly dry on exam. Electrolytes are within normal limits -PT/OT evaluation -Fall precautions (3) Knee pain, bilateral: Patient with swollen and tender knees . She has difficulty with weight bearing and ambulation. She denies trauma. No additional joint pain. Patient difficulty rising from the commode. ESR and CRP are elevated and uric acid is normal. Bilaterally Knee Xrays show bilateral severe narrowing of lateral compartment of the knee joint as well as the patellofemoral joint representing degenerative changes. Due to GI concerns, topical voltaran might offer some relief of Pain. PT/OT were consulted to evaluate function - Topical Voltaran PRN for pain. Chronicity: unspecified Qualified Code(s): M25.561 - Pain in right knee; M25.562 - Pain in left knee (4) Abnormal ECG: Patient sent from PCP for concerning EKG findings. She has elevated troponin at 0.099 and repeat at .118. She denies chest pain, palpitations. She mentioned some BARRAZA. Recent echo showed moderate mitral annular calcification but otherwise unremarkable. -Telemetry monitoring -Trend troponins -ASA 81mg po daily (5) Unexplained weight loss: Patient with significant weight loss, unintentional, 15# in the last 3 months. She has had decline in appetite and poor oral intake. A trial of Marinol may help with pt's appetite. -Patient was prescribed Remeron in the past for depressive symptoms, however, she did not fill the prescription and did not want to take this medication. -Check Prealbumin -Dietary consultation -Marinol 2.5mg (6) Dysuria: Pt has had increased urinary frequency and occasional dysuria. Negative UA -Follow culture Admission and Anticipated Discharge Date Admission Date: November 22, 2020 Subjective *Interpreting services were attempted, but failed to find a language pt understands. Pt notes she speaks ivorian, but dialect could not be determined. (Attempted Azeri and South African)* Pt is an 85 yo F that was brought into the ER by her for weight loss, fatigue, and recent ECG changes. In terms of of her weight loss, pt was unaware of her recent weight loss, but has noted that she has not really had an appetite, but also that she has had bouts of diarrhea. When asked about dark stools, she mentions having seen dark stools in the past with a strong odor. She tends to avoid anything by mouth as it can upset her stomach. Pt has noted significant weakness and fatigue, but could not give me a time period in which she first noticed the change. She mentioned waking up still feeling sleepy and not feeling rested. She sleeps a lot during the day and gets tired walking short distances. When she stands up, she has to pause as she sometimes feels some dizzyness. Her biggest concern is her knee pain. She does not take medication for it, but is something that causes significant impairment. Spoke with today, she has been having memory problems for years so has trouble recalling a lot. He notes increased fatigue, BARRAZA, and urinary frequency at home. He notes that she does not tend to see the doctors, but has no significant medical hx, surgical hx, or family hx. Her appatite has not been great at home, but the weight loss was first noted while at a doctors appt. Physical Exam Constitutional: + frail appearing and + underweight Eyes: PERRL, conjunctivae normal, anicteric sclerae ENMT: external ear and nose normal, oropharynx normal Neck: normal visual inspection Respiratory: normal respiratory effort, lungs clear to auscultation Cardiovascular: RRR, no murmur, no edema Gastrointestinal (Abdomen): Inspection/Auscultation: abdomen normal to inspection; abdomen not distended Percussion/Palpation: abdomen nontender Musculoskeletal: Knee: + knee abnormal to inspection, + knee ROM with crepitation (L>R) and + joint line tenderness; no skin erythema Skin: no rashes and no jaundice Neurologic: PERRL, EOMI, accommodation nl, no face palsy, no dysarthria Psychiatric: Orientation: alert, oriented to person, oriented to place and cooperative; + not oriented to time Eye Contact: good eye contact Results & Data ([facility]) Vital Signs (Past 12 Hours) Vital Signs Temp Pulse Pulse Resp BP BP Pulse Ox 11/24/20 07:39 36.4 C L 89 18 157/74 H 99 11/24/20 07:30 84 11/24/20 04:30 82 11/24/20 03:45 36.4 C L 81 18 134/79 99 11/23/20 23:46 36.5 C 84 18 144/80 H 98
--- NOTE | 2020-11-24 15:04 | Discharge Summary ---
Date of Service November 24, 2020 Admission HPI Per Admitting Provider Michelle Lynch is an 85yo [place] female presenting at request of her PCP, Dr. Moraes, for weight loss and EKG changes. Patient was seen by her PCP today for routine visit. She was complaining of generalized decrease in energy and difficulty with ambulation. Additionally she was noted to have a 15# weight loss over the last 3 months. Patient's sister suddenly 2 months ago. Patient's diet has markedly declined over the last 3 weeks - she is barely eating. Patient has been unable to walk or stand for the last 3 weeks - she reports severe pain and swelling in her knees bilaterally. She reports occasional diz ziness with positional changes. Additionally, she states that sometimes she experiences weakness in her shoulder girdle as well as difficulty standing up from commode. notes a decrease in appetite over the last 2+ months. Today she ate one egg, one orange, 1/2 apple and 1/2 of a banana. She has received both Covid-19 vaccines with the second vaccine being in September. Patient denies fevers/chills/chest pain/SOB/abdominal pain/nausea/vomiting/diarrhea or constipation. She denies pain or swelling in other joints/rashes/oral lesions. Denies edema/orthopnea/swelling She has had a dry cough as well as increased urinary frequency ER Course: No interventions Admission Exam Per Admitting Provider General: frail, cachectic female patient resting comfortably, NAD, non-toxic in appearance, AA&O x 4 Skin: warm, dry, intact, no rashes or lesions HEENT: NC/AT, PERRL, EOMI, anicteric sclera, conjunctiva without injection, external ear normal to inspection and nontender, nares patent, dry mucus membranes, dentition intact, no oropharyngeal lesions, neck supple, trachea midline, no LAD, no thyromegaly, no JVD Heart: +S1/S2, regular, no m/r/g Lungs: equal air entry bilaterally, no rales/rhonchi/wheezes Abd: +BS, soft, NT/ND, no masses/organomegaly/ascites Ext: warm, 2+ pulses in UE/LE bilaterally, no clubbing/cyanosis or edema, bilateral knees swollen and tender Neuro: nonfocal, patient AA&O x 4, speech intact, no facial droop, moving all extremities on command with equal strength 5/5 Principal Diagnosis Abnormal weight loss Discharge Exam Constitutional + thin, cooperative and comfortable Eyes PERRL, conjunctivae normal, anicteric sclerae ENMT external ear and nose normal, oropharynx normal Neck normal visual inspection and trachea midline Respiratory normal respiratory effort; no respiratory distress Cardiovascular Rate/Rhythm: regular rate and regular rhythm Skin no rashes, warm and dry Neurologic moves all extremities and awake Discharge Data Allergies Allergy/AdvReac Type Severity Reaction Status Date / Time No Known Allergies Allergy Verified 11/22/20 13:30 Consultations 11/22/20 19:28 ED Decision to Admit Stat Ordered Studies 11/22/20 16:34 CT head/brain wo con Stat 11/22/20 16:36 CT lumbar spine wo con Stat 11/22/20 17:17 CT angio chest PE protocol Stat 11/23/20 09:38 CT abd pelvis IV con only Urgent Hospital Course (1) Anemia: Michelle Lynch is a 85 year old female who presented from PCP office for abnormal weight loss and knee pain. There was obvious concern for underlying malignancy as cause of weight loss. However, no source was found during workup. Concern is still present as ESR was elevated in 70s and suspect underlying inflammation as either causing catabolic metabolic state vs. suppression of appetite via IL-1/TNF-a. CT scans were obtained of torso and abdomen without findings of malignancy. Hepatitis workup was negative as well for consideration for HCC. TSH was WNL. No significant electrolyte abnormalities on day of discharge. Dietary did see patient. She was started on appetite stimulant Dronabinol with Rx provided. PT/OT recommended home PT which was set up and will see her at home on Friday. She requested to go home and felt well. arrived and requested Michelle to be allowed to go home if able. There were no current indications to keep Michelle and further hospital stay could promote delirium or weakness. She was advised about need to increase nutrition. She was advised to follow up with her PCP. Pending Lab testing to aide with outpatient workup: Spep and Upep for Multiple Myeloma considerations Peripheral smear - pending. (2) Generalized weakness: Will continue PT at home (3) Knee pain, bilateral: Patient with swollen and tender knees . She has difficulty with weight bearing and ambulation. She denies trauma. No additional joint pain. Patient difficulty rising from the commode. ESR and CRP are elevated and uric acid is normal. Bilaterally Knee Xrays show bilateral severe narrowing of lateral compartment of the knee joint as well as the patellofemoral joint representing degenerative changes. Due to GI concerns, topical voltaran might offer some relief of Pain. PT/OT were consulted to evaluate function - Topical Voltaran PRN for pain. Provided eRx. (4) Abnormal ECG: Patient sent from PCP for concerning EKG findings. She has elevated troponin at 0.099 and repeat at .118. She denies chest pain, palpitations. She mentioned some BARRAZA. Recent echo showed moderate mitral annular calcification but otherwise unremarkable. -Telemetry monitoring -Trend troponins -ASA 81mg po daily (5) Unexplained weight loss: Patient with significant weight loss, unintentional, 15# in the last 3 months. She has had decline in appetite and poor oral intake. A trial of Marinol may help with pt's appetite. -Patient was prescribed Remeron in the past for depressive symptoms, however, she did not fill the prescription and did not want to take this medication. -Check Prealbumin - (6) Dysuria: Pt has had increased urinary frequency and occasional dysuria. Negative UA Total Time Total Time Spent Total Time Spent (In Minutes): 35 Total Time Includes: Examination of the Patient, Discharge Planning and Medication Reconciliation Discharge Plan Discharge Items Patient Disposition: Home - Self-Care Reason For Visit: WEIGHT LOSS, ELEVATED TROPONIN Discharge Diagnosis: Weight Loss; Anemia Activity: Resume your previous activity Non-emergency contact: Primary Care Provider Call non-emergency contact if: you have any medication questions, your symptoms worsen and your pain is worsening Follow-up/Referrals: Jacky Moraes DO [Primary Care Provider] - 11/29/20 11:30 am Diet: Regular Addtl Attending Provider Instructions: You were seen and evaluated for abnormal weight loss and knee pain. You were also found to have a low hemoglobin level called anemia. We are concerned of your abnormal weight loss. We scanned your torso and stomach for a cause but did not see any cause. We have prescribed a medication called Dronabinol to help increase your appetite. [facility]. Take one pill of Dronabinol 2.5mg daily. We investigated your heart as you had mild elevation of a level called troponin, but there were no signs of an acute heart attack. For your knee pain, we recommend you use the topical Voltaren gel. You can use this 4 times a day. Apply over both your knees. Physical Therapy will visit you in the home to continue with strength training which will help with your knee pain and ability to walk. You do need to increase your food intake. You had an elevated ESR level which indicates inflammation in the body, but we did not find a source. Please follow up with your Primary Care Provider to ensure that you stop losing weight. If you have chest pain or shortness of breath or confusion, please return to [facility] ED for evaluation. Pending Studies at Discharge: Yes Studies:: Spep, Upep for MM workup; peripheral smear Stand-Alone Forms: [facility] [employer] Medications and DC Order Prescriptions: New diclofenac sodium [Voltaren] 1 % Gel 4 g EXT Q6 30 Days Qty: 150 RF: 0 dronabinol 2.5 mg Capsule 2.5 mg PO DAILY 30 Days Qty: 30 RF: 0 dronabinol 2.5 mg capsule 2.5 mg PO HS 30 Days Qty: 30 RF: 0 Continued ascorbic acid (vitamin C) [Vitamin C] 500 mg Tablet 500 mg PO DAILY PRN (Reason: Prophylaxis) RF: 0 cholecalciferol (vitamin D3) [Vitamin D3] 2,000 unit Tablet 2,000 unit PO DAILY PRN (Reason: Prophylaxis) RF: 0 omega 8-yoa-axa-fish oil [Fish Oil] 1,000 mg (120 mg-180 mg) Capsule 1 cap PO DAILY PRN (Reason: Prophylaxis) RF: 0 Discharge Orders: Discharge Order (Routine); Ordered 11/24/20 Ordered By: Cameron Zelaya/Other Patient Handouts: Anemia, Nutrition and MyPlate: Protein Foods, Nutrition and MyPlate: Vegetables, Knee Osteoarthritis Admission Data Admit Date/Time: 11/22/20 20:21 Attending Provider: Telly Gore Admit Provider: Arielle Del Valle Primary Care Provider: Jacky Moraes Other Providers: Arielle Del Valle Supervising Physician Co-Signing Physician Notes Attending attestation Pt seen and examined in concert with Dr. Harrison. In agreement with the documented findings as noted in the resident documentation with any exceptions or additions as noted here. Appreciable improvement in feeling of fatigue, still with persistent decreased appetite with some improvement on Marinol On examination, S1/S2 nl RRR no MCG. CTAB. Abd NT/ND BS+ve Generalized weakness in the setting of anemia - CT imaging as noted, peripheral smear and SPEP/UPEP pending - encourage improved POI with dronabinol for support and close PCP follow up. Else see resident documentation as noted. Total attending time spent on this case on the day of discharge: 40 minutes. Resident Activity Tracking Resident Involvement: Resident Care Provided Care Provided: [facility] Medicine Home Health Attestation I certify that this patient is under my care and that I, or a physicians bricklayer's assistant working with me, had a face to-face encounter that meets the home health [id number] encounter requirements with this patient. The encounter with the patient was in whole, or in part, for the following medical condition, which is the primary reason for home health care (list medical condition): I certify that, based on my findings, the following services are medically necessary home health services: My clinical findings support the need for the above services because: OT Assess ADL Status and Restore Function w ADLs PT Assessment for Endurance / Balance / Strength Further, I certify that my clinical findings support that this patient is bert ebound (i.e. absences from home require considerable and taxing effort and are for medical reasons or taoism services or infrequently or of short duration when for other reasons) because: Supportive Aid - Walker Certification for Home Health Services: Based on the above findings, I certify that this patient is confined to the home and needs intermittent care home care, physical therapy and/or speech therapy or continues to need occupational therapy. The patient is under my care, and I have initiated the establishment of the plan of care. This patient will be followed by a physician who will periodically review the plan of care.
[2020-11-29 11:36] LABS: Creatinine Ur 82 mg/dL (20-275); Protein, Urine Random 57 mg/dL (5-24); Ur Protein/Creat Ratio mg/g 695 mg/g creat (21-161); Urine Abnormal Protein Band 1 DNR mg/dL (NONE DETECTED); Urine Abnormal Protein Band 2 DNR mg/dL (NONE DETECTED); Urine Abnormal Protein Band 3 DNR mg/dL (NONE DETECTED); Urine Protein/Creatinine Ratio 0.695 (0.021-0.161)
[2020-11-30 13:07] LABS: Albumin 3.1 g/dL (3.8-4.8); Alpha 1 Globulin 0.5 g/dL (0.2-0.3); Alpha 2 Globulin 1.1 g/dL (0.5-0.9); Beta-1-Globulin 0.4 g/dL (0.4-0.6); Beta-2-Globulin 0.5 g/dL (0.2-0.5); Gamma Globulin 1.5 g/dL (0.8-1.7); Monoclonal Protein Band 1 DNR g/dL (NONE DETECTED); Monoclonal Protein Band 2 DNR g/dL (NONE DETECTED); Monoclonal Protein Band 3 DNR g/dL (NONE DETECTED); Total Protein 7.1 g/dL (6.1-8.1)
--- NOTE | 2020-12-05 10:03 | Coding Query ---
A supporting diagnosis is required for the test/procedure performed on this patient in order for us to be reimbursed by the patient's insurance. Please provide a supporting diagnosis for the following test/procedure listed below next to the test name along with your signature. *If there is no additional diagnosis for this patient that would support the following test/procedure please document that below next to the test/procedure. Test(s)/Procedure(s) that require a supporting diagnosis: * VITAMIN D, 25-HYDROXY DIAGNOSIS: Provider Signature: Date: Thank you Colleen Espinoza [email or web address] Information Management Once completed, please kindly fax back to [phone] For questions please call [phone]
== END 2020-11-24 16:20 | disposition home or self-care (01) ==
LOC: ED 14:59 → SUATTDRO 20:21 → INTOOBSV 20:21 → 2N 20:21